=== PATIENT | female | born 1995 | race American Indian/Alaskan Native ===

== ENCOUNTER 2020-01-29 04:07 | Emergency (ER) | payer SELFPAY ==
[2020-01-29 04:51] VITALS: BP 114/64
== END 2020-01-29 04:51 | disposition left against medical advice (07) ==
LOC: ED 04:07
DX: R07.89 Other chest pain (principal); Z53.21 Procedure and treatment not carried out due to patient leaving prior to being seen by health care provider
CPT/HCPCS: 93005

== ENCOUNTER 2020-03-18 04:41 | Emergency (ER) | payer MEDICAID ==
[2020-03-18 04:49] VITALS: BP 126/75
[2020-03-18] MEDS ORDERED: ALUM-MAG HYDROXIDE-SIMETHICONE 200-200-20MG/5ML ORAL LIQD 30 ML PO ONE (06:46)
[2020-03-18] MEDS ORDERED: LIDOCAINE VISCOUS 2% 15 ML ORAL LIQD PO ONE (06:46)
[2020-03-18] MEDS ORDERED: IBUPROFEN 800 MG TAB PO ONE (06:47)
--- NOTE | 2020-03-18 07:18 | Emergency Department Report ---
ED General Adult HPI - General Chief complaint: Chest Pain Stated complaint: CHEST PRESSURE AND PAIN Time Seen by Provider: 03/18/20 06:46 Source: patient Mode of arrival: Ambulatory Limitations: No Limitations - History of Present Illness Initial comments: Patient is a 24-year-old female with history of GERD who presents for epigastric pain and burning exacerbated by p.o. intake and recumbent position. There is associated belching and bloating. Symptoms for the past week. Patient does endorse similar symptoms in past. Patient seen for the same 1 month ago. With normal cardiac work-up normal chest x-ray patient declines chest x-ray today. There has been no fever, chills, or cough. There has been no shortness of breath or wheezing. There has been no fever or chills. Patient is tolerating p.o. intake without vomiting. Severity scale (0 -10): 3 - Related Data Previous Rx's Medication Instructions Recorded Last Taken Type Ibuprofen [Motrin 800 MG tab] 800 mg PO Q8HR PRN #30 tablet 03/18/20 Unknown Rx Omeprazole 20 mg PO DAILY #30 tab.rap.dr 03/18/20 Unknown Rx Sucralfate [Carafate] 1 gm PO ACHS 7 Days #28 tablet 03/18/20 Unknown Rx Allergies Allergy/AdvReac Type Severity Reaction Status Date / Time No Known Allergies Allergy Unverified 01/29/20 04:56 ED Review of Systems ROS: Stated complaint: CHEST PRESSURE AND PAIN Other details as noted in HPI Constitutional: denies: chills, fever Eyes: denies: eye pain, eye discharge, vision change ENT: denies: ear pain, throat pain Respiratory: denies: cough, shortness of breath, wheezing Cardiovascular: denies: chest pain, palpitations Endocrine: no symptoms reported Gastrointestinal: nausea. denies: vomiting, diarrhea, constipation Genitourinary: denies: urgency, dysuria, discharge Musculoskeletal: denies: back pain, joint swelling, arthralgia Skin: denies: rash, lesions Neurological: denies: headache, weakness, paresthesias Psychiatric: denies: anxiety, depression Hematological/Lymphatic: denies: easy bleeding, easy bruising ED Past Medical Hx - Past Medical History Previous Medical History?: Yes Additional medical history: Hyperthyroidism - Surgical History Past Surgical History?: No - Social History Smoking Status: Never Smoker Substance Use Type: None - Medications Home Medications: Home Medications Medication Instructions Recorded Confirmed Last Taken Type Ibuprofen [Motrin 800 MG tab] 800 mg PO Q8HR PRN #30 tablet 03/18/20 Unknown Rx Omeprazole 20 mg PO DAILY #30 tab. 03/18/20 Unknown Rx Sucralfate [Carafate] 1 gm PO ACHS 7 Days #28 tablet 03/18/20 Unknown Rx ED Physical Exam - General Limitations: No Limitations General appearance: alert, in no apparent distress - Head Head exam: Present: atraumatic, normocephalic - Eye Eye exam: Present: normal appearance, EOMI Pupils: Present: normal accommodation - ENT ENT exam: Present: mucous membranes moist - Neck Neck exam: Present: normal inspection, full ROM. Absent: tenderness - Respiratory Respiratory exam: Present: normal lung sounds bilaterally. Absent: respiratory distress, wheezes, stridor, chest wall tenderness - Cardiovascular Cardiovascular Exam: Present: regular rate, normal rhythm. Absent: systolic murmur, diastolic murmur, rubs, gallop - GI/Abdominal GI/Abdominal exam: Present: soft, normal bowel sounds. Absent: distended, tenderness, guarding, rebound, rigid, bruit, hernia - Rectal Rectal exam: Present: deferred - Extremities Exam Extremities exam: Present: normal inspection, full ROM, normal capillary refill. Absent: tenderness - Back Exam Back exam: Present: normal inspection, full ROM. Absent: tenderness, CVA tenderness (R), CVA tenderness (L) - Neurological Exam Neurological exam: Present: alert, oriented X3, CN II-XII intact, normal gait - Psychiatric Psychiatric exam: Present: normal affect, normal mood - Skin Skin exam: Present: warm, dry, intact, normal color. Absent: rash ED Course Vital Signs 03/18/20 04:45 Temperature 98.2 F Pulse Rate 93 H Respiratory 16 Rate Blood Pressure 126/75 O2 Sat by Pulse 98 Oximetry ED Medical Decision Making - Medical Decision Making This is likely GERD Plan omeprazole Carafate ibuprofen follow-up with GI in 2 to 3 days patient verbalized agreement and understanding of discharge plan. Patient DC'd home in stable condition at this time. Critical care attestation.: If time is entered above; I have spent that time in minutes in the direct care of this critically ill patient, excluding procedure time. ED Disposition Clinical Impression: GERD (gastroesophageal reflux disease) Qualifiers: Esophagitis presence: without esophagitis Qualified Code(s): K21.9 - Gastro- esophageal reflux disease without esophagitis Disposition: TO HOME OR SELFCARE Is pt being admited?: No Does the pt Need Aspirin: No Condition: Stable Prescriptions: Sucralfate [Carafate] 1 gm PO ACHS 7 Days #28 tablet Ibuprofen [Motrin 800 MG tab] 800 mg PO Q8HR PRN #30 tablet PRN Reason: pain Omeprazole 20 mg PO DAILY #30 tab.rap. Referrals: [facility] [Provider Group] - 3-5 Days Forms: Work/School Release Form(ED) Time of Disposition: 07:18
== END 2020-03-18 07:41 | disposition home or self-care (01) ==
LOC: ED 04:41
DX: K21.9 Gastro-esophageal reflux disease without esophagitis (principal); Z79.1 Long term (current) use of non-steroidal anti-inflammatories (NSAID); Z79.899 Other long term (current) drug therapy
CPT/HCPCS: 93005; 99282

== ENCOUNTER 2020-03-18 11:39 | Emergency (ER) | payer MEDICAID ==
[2020-03-18] MEDS ORDERED: FAMOTIDINE 20 MG/2 ML INJ IV ONE (12:12)
[2020-03-18] MEDS ORDERED: ACETAMINOPHEN 325 MG TAB PO STA (12:12)
[2020-03-18] MEDS ORDERED: SODIUM CHLORIDE 0.9% 1000 ML 1,000 ML IV ONE (12:12)
[2020-03-18] MEDS ORDERED: diphenhydrAMINE 50 MG/ML VIAL IV ONE (12:12)
--- NOTE | 2020-03-18 12:14 | Emergency Department Report ---
ED General Adult HPI - General Chief complaint: Arrhythmia/Palpitations Stated complaint: HEART RACING/ANXIETY PUI?: No Time Seen by Provider: 03/18/20 11:53 Source: patient, RN notes reviewed, old records reviewed Mode of arrival: Ambulatory Limitations: No Limitations - History of Present Illness Initial comments: The patient was evaluated in the emergency department for symptoms described in the history of present illness. He/she was evaluated in the context of the global COVID-19 pandemic, which necessitated consideration that the patient might be at risk for infection with the virus that causes COVID-19. Institution al protocols and algorithms that pertain to the evaluation of patients at risk for COVID-19 are in a state of rapid change based on information released by regulatory bodies including the CDC and federal and state organizations. These policies and algorithms were followed during the patient's care in the emergency department. Please note that these policies, procedures and recommendations changed on a rapid basis. During the entire history and physical examination, I am chaperoned by nurse Malick Lang. This is a 24-year-old female. She is not known to myself previously. The patient tells me that she has a history of hypothyroidism. She states that recently in the past, she was ruled out for both Josy's and Graves' disease. She was being maintained and managed by an ENT physician at [facility]. She was previously on propranolol and methimazole, and she reports that her ENT physician discontinued the methimazole secondary to "decreasing blood counts." She is not compliant with her propanolol. The patient states that she is having trouble following up with outpatient end ocrinologist secondary to insurance issues. She presents to the ER today with a complaint of palpitations, heart racing, lightheadedness, and chest tightness. Her chest tightness is central and left-sided. It does not radiate to the back, arms or neck. It has been going on intermittently for weeks and months. She has not lost consciousness. She also reports feeling very anxious. She denies headache, neck pain, abdominal pain, , urinary symptoms, homicidality, suicidality. She does not smoke cigarettes or use recreational drugs. She denies travel, surgery, and oral contraceptive use. Her symptoms were improved in the ER with fluids, and reassurance. The symptoms have been going on and off intermittently for a few weeks/months, and today was an acute exacerbation. -: Gradual, week(s) Location: chest Radiation: non-radiation Consistency: intermittent Improves with: other Worsens with: other - Related Data Previous Rx's Medication Instructions Recorded Last Taken Type Methimazole [Tapazole] 10 mg PO QDAY #30 tablet 03/18/20 Unknown Rx Omeprazole 20 mg PO DAILY #30 tab. 03/18/20 Unknown Rx Sucralfate [Carafate] 1 gm PO ACHS 7 Days #28 tablet 03/18/20 Unknown Rx atenoloL [Tenormin] 25 mg PO DAILY #30 tab 03/18/20 Unknown Rx Allergies Allergy/AdvReac Type Severity Reaction Status Date / Time No Known Allergies Allergy Verified 03/18/20 11:40 ED Review of Systems ROS: Stated complaint: HEART RACING/ANXIETY Other details as noted in HPI Constitutional: denies: fever Eyes: denies: vision change ENT: denies: epistaxis Respiratory: see HPI. denies: cough, wheezing Cardiovascular: chest pain, palpitations Gastrointestinal: denies: nausea, vomiting, diarrhea Genitourinary: denies: dysuria Musculoskeletal: denies: back pain Skin: denies: lesions Neurological: weakness Psychiatric: anxiety ED Past Medical Hx - Past Medical History Additional medical history: Hyperthyroidism - Social History Smoking Status: Never Smoker Substance Use Type: None - Medications Home Medications: Home Medications Medication Instructions Recorded Confirmed Last Taken Type Methimazole [Tapazole] 10 mg PO QDAY #30 tablet 03/18/20 Unknown Rx Omeprazole 20 mg PO DAILY #30 tab. 03/18/20 Unknown Rx Sucralfate [Carafate] 1 gm PO ACHS 7 Days #28 tablet 03/18/20 Unknown Rx atenoloL [Tenormin] 25 mg PO DAILY #30 tab 03/18/20 Unknown Rx ED Physical Exam - General Limitations: No Limitations General appearance: alert, anxious, in distress - Head Head exam: Present: atraumatic, normocephalic - Eye Eye exam: Present: normal appearance, EOMI. Absent: nystagmus - ENT ENT exam: Present: normal exam, normal orophraynx, mucous membranes moist, normal external ear exam - Neck Neck exam: Present: normal inspection, full ROM. Absent: tenderness, meningismus - Respiratory Respiratory exam: Present: normal lung sounds bilaterally, chest wall tenderness. Absent: respiratory distress, wheezes, rales, rhonchi, stridor - Cardiovascular Cardiovascular Exam: Present: normal rhythm, tachycardia, normal heart sounds. Absent: irregular rhythm, systolic murmur, diastolic murmur, rubs, gallop - GI/Abdominal GI/Abdominal exam: Present: soft. Absent: distended, tenderness, guarding, rebound, rigid, pulsatile mass - Extremities Exam Extremities exam: Present: normal inspection, full ROM, other (2+ pulses noted in the bilateral upper and lower extremities. There is no palpable cord. negative Homans sign. Muscular compartments are soft. The pelvis is stable.). Absent: pedal edema, calf tenderness - Back Exam Back exam: Present: normal inspection, full ROM. Absent: tenderness, CVA tenderness (R), CVA tenderness (L), paraspinal tenderness, vertebral tenderness - Neurological Exam Neurological exam: Present: alert, oriented X3, other (No facial droop. Tongue midline. Extraocular movements intact bilaterally. Facial sensation intact to light touch in V1, V2, V3 distribution bilaterally. 5 and a 5 strength in 4 extremities. Sensation intact to light touch in 4 extremities.). Absent: motor sensory deficit - Psychiatric Psychiatric exam: Present: anxious - Skin Skin exam: Present: warm, dry, intact, normal color. Absent: rash ED Course Vital Signs 03/18/20 03/18/20 03/18/20 11:42 11:57 12:00 Temperature 98.6 F Pulse Rate 142 H 116 H 113 H Respiratory 20 27 H 14 Rate Blood Pressure 130/96 109/70 O2 Sat by Pulse 99 96 Oximetry 03/18/20 03/18/20 03/18/20 12:15 12:18 12:30 Temperature Pulse Rate 116 H 106 H Respiratory 17 17 13 Rate Blood Pressure 106/72 117/62 O2 Sat by Pulse 97 98 100 Oximetry 03/18/20 03/18/20 03/18/20 12:45 13:01 13:15 Temperature Pulse Rate 98 H 114 H Respiratory 19 24 Rate Blood Pressure 117/62 96/63 101/65 O2 Sat by Pulse 98 99 100 Oximetry 03/18/20 03/18/20 03/18/20 13:31 13:45 14:00 Temperature Pulse Rate 105 H 103 H 90 Respiratory 17 21 14 Rate Blood Pressure 108/58 112/68 110/63 O2 Sat by Pulse 81 L 100 100 Oximetry 03/18/20 03/18/20 03/18/20 14:15 14:30 14:45 Temperature Pulse Rate 106 H 89 91 H Respiratory 16 22 19 Rate Blood Pressure 122/73 103/61 105/57 O2 Sat by Pulse 100 98 100 Oximetry 03/18/20 03/18/20 15:00 15:15 Temperature Pulse Rate 106 H 95 H Respiratory 20 16 Rate Blood Pressure 97/65 112/60 O2 Sat by Pulse 98 99 Oximetry - Reevaluation(s) Reevaluation #1: 03/18/20 14:23 Differential diagnosis, including but not limited to: Hyperthyroidism, anxiety, costochondritis, GERD, gastritis, hiatal hernia, pneumonia, myoca rditis/pericarditis, coronary artery disease Assessment and plan: 24-year-old female with resolved tachycardia, who is not currently tachycardic, tachypneic or hypoxic, who does not have any DVT or p ulmonary embolism risk factors, who is low risk by Wells criteria, with a negative D-dimer, clinically sober, with a GCS of 15, with a history of hyperthyroidism, that appears to be inadequately managed secondary to medication noncompliance and not following up. TSH quite low, free T4 pending, CBC with differential pending, liver panel pending. Patient declined pain medicine at this time. Patient is quite young, and at low risk for major adverse cardiac event as per heart score. Her EKG today is morphologically unchanged from her prior EKG, with exception of tachycardia. Patient is amenable to resuming atenolol, as well as methimazole. Counseled to refrain from driving or operating motor vehicles until cleared to do so by her primary care doctor. I strongly counseled the patient to follow-up with an outpatient primary care doctor or policy advisor as soon as possible. This patient is observed in this ER department for hours without clinical decompensation, and has clinically improved. On multiple repeat assessments, she is playing with her cellular phone, with resolved tachycardia, does not appear to be in any acute distress. Her heart rate at this time is approximately 92 bpm. 03/18/20 17:21 Reevaluation #2: 03/18/20 15:30 Patient sleeping and resting comfortably in stretcher. Tachycardia resolved. Playing with her cellular phone. Does not appear to be in any acute distress at this time. ED Medical Decision Making - Lab Data Result diagrams: 03/18/20 Unknown 03/18/20 12:24 Vital Signs 03/18/20 11:42 Temperature 98.6 F Pulse Rate 142 H Respiratory 20 Rate Blood Pressure 130/96 O2 Sat by Pulse 99 Oximetry Lab Results 03/18/20 03/18/20 03/18/20 Range/Units 12:24 12:24 12:24 Hgb 10.6 (10.1-14.3) gm/dl Hct 32.9 (30.3-42.9) % Plt Count 443 H (140-440) K/mm3 D-Dimer 186.36 (0-234) ng/mlDDU Sodium 141 (137-145) mmol/L Potassium 3.8 (3.6-5.0) mmol/L Chloride 107.1 H (98-107) mmol/L Carbon Dioxide 22 (22-30) mmol/L Anion Gap 16 mmol/L BUN 7 (7-17) mg/dL Creatinine 0.4 L (0.6-1.2) mg/dL Estimated GFR > 60 ml/min BUN/Creatinine Ratio 18 % Glucose 95 (65-100) mg/dL Calcium 9.8 (8.4-10.2) mg/dL Magnesium 2.00 (1.7-2.3) mg/dL Total Creatine Kinase 49 (30-135) units/L TSH (0.270-4.200) mlU/mL HCG, Quant (0-4) mIU/mL Salicylates (2.8-20.0) mg/dL Acetaminophen (10.0-30.0) ug/mL Plasma/Serum Alcohol (0-0.07) % 03/18/20 03/18/20 03/18/20 Range/Units 12:24 12:24 12:24 Hgb (10.1-14.3) gm/dl Hct (30.3-42.9) % Plt Count (140-440) K/mm3 D-Dimer (0-234) ng/mlDDU Sodium (137-145) mmol/L Potassium (3.6-5.0) mmol/L Chloride (98-107) mmol/L Carbon Dioxide (22-30) mmol/L Anion Gap mmol/L BUN (7-17) mg/dL Creatinine (0.6-1.2) mg/dL Estimated GFR ml/min BUN/Creatinine Ratio % Glucose (65-100) mg/dL Calcium (8.4-10.2) mg/dL Magnesium (1.7-2.3) mg/dL Total Creatine Kinase (30-135) units/L TSH < 0.005 L (0.270-4.200) mlU/mL HCG, Quant < 2 (0-4) mIU/mL Salicylates < 0.3 L (2.8-20.0) mg/dL Acetaminophen (10.0-30.0) ug/mL Plasma/Serum Alcohol (0-0.07) % 03/18/20 03/18/20 Range/Units 12:24 12:24 Hgb (10.1-14.3) gm/dl Hct (30.3-42.9) % Plt Count (140-440) K/mm3 D-Dimer (0-234) ng/mlDDU Sodium (137-145) mmol/L Potassium (3.6-5.0) mmol/L Chloride (98-107) mmol/L Carbon Dioxide (22-30) mmol/L Anion Gap mmol/L BUN (7-17) mg/dL Creatinine (0.6-1.2) mg/dL Estimated GFR ml/min BUN/Creatinine Ratio % Glucose (65-100) mg/dL Calcium (8.4-10.2) mg/dL Magnesium (1.7-2.3) mg/dL Total Creatine Kinase (30-135) units/L TSH (0.270-4.200) mlU/mL HCG, Quant (0-4) mIU/mL Salicylates (2.8-20.0) mg/dL Acetaminophen 5.0 L (10.0-30.0) ug/mL Plasma/Serum Alcohol < 0.01 (0-0.07) % - EKG Data -: EKG Interpreted by [facility] EKG shows normal: sinus rhythm Rate: tachycardia - EKG Data When compared to previous EKG there are: no significant change 03/18/20 14:26 Sinus rhythm, tachycardia, 117 bpm, normal axis, QTC is 444 ms, there is minimal motion artifact. This EKG is abnormal. This EKG is not a STEMI, the EKG today appears to be unchanged from prior EKG from 01/29/2000 - Radiology Data Radiology results: pending, report reviewed, image reviewed Print Report Referring Physician: ANNALISA RENAE Patient Name: BECKIE PRICE Date of : 1995 Sex: Female Report Date: 2020-03-18 Report Status: Finalized Findings [facility] [address] [place] [address] XRay Report Signed Patient: BECKIE PRICE MR#: [id number] : 1995 Acct:[id number] Age/Sex: 24 / F ADM Date: 03/18/20 Loc: ED Attending Dr: Ordering Physician: ANNALISA RENAE MD Date of Service: 03/18/20 Procedure(s): XR chest 1V ap Accession Number(s): [id number] cc: ANNALISA RENAE MD Fluoro Time In Minutes: CHEST 1 VIEW INDICATION: Chest pain. COMPARISON: None FINDINGS: Support devices: None. Heart: Within normal limits. Lungs/Pleura: No acute air space or interstitial disease. Additional findings: None. IMPRESSION: No acute findings. Signer Name: Azam Ordonez Jr, MD Signed: 03/18/2020 1:48 PM Workstation Name: [id number] Transcribed By: TTR Dictated By: AZAM ORDONEZ JR, MD Electronically Authenticated By: AZAM ORDONEZ JR, MD Signed Date/Time: 03/18/20 134 DD/ TD/TT: Critical care attestation.: If time is entered above; I have spent that time in minutes in the direct care of this critically ill patient, excluding procedure time. ED Disposition Clinical Impression: Hyperthyroidism, Chest wall pain, Non-compliance Disposition: DC-01 TO HOME OR SELFCARE Is pt being admited?: No Does the pt Need Aspirin: No Condition: Stable Instructions: Hyperthyroidism, Chest Wall Pain, Chest Pain (ED) Additional Instructions: We recommend that the patient not drive or operate motor vehicles for the next 6 months, or until cleared to do so by her primary care doctor and/or policy advisor. Recommend follow-up with an outpatient primary care doctor/policy advisor as soon as possible. Recommend that patient reinitiate methimazole therapy, and atenolol therapy. Recommend that patient not breast-feed while taking these medications. Recommend that patient drink 4 to 6 cups of water per day indefinitely, and make certain to eat 4-6 meals per day indefinitely. Please return to the emergency room right away with new pain, worsened pain, migration of pain, projectile vomiting, change in mental status, confusion, inab ility to tolerate liquid feeds. Patient may take [id number] acetaminophen and/or ibuprofen as needed for pain. If taking ibuprofen for pain, make certain to take it with food. Recommend follow-up with an outpatient primary care doctor or policy advisor Prescriptions: Methimazole [Tapazole] 10 mg PO QDAY #30 tablet atenoloL [Tenormin] 25 mg PO DAILY #30 tab Referrals: KINDRA MOREAU MD [Staff Physician] - 3-5 Days [facility] [Provider Group] - 3-5 Days
[2020-03-18 12:48] LABS: Hematocrit 32.9 % (30.3-42.9); Hemoglobin 10.6 gm/dl (10.1-14.3)
[2020-03-18 13:19] LABS: Blood Urea Nitrogen 7 mg/dL (7-17); Calcium 9.8 mg/dL (8.4-10.2); Hemolysis Index 15
[2020-03-18 13:23] LABS: BUN/Creatinine Ratio 18
--- NOTE | 2020-03-18 13:53 | XRay Report ---
CHEST 1 VIEW INDICATION: Chest pain. COMPARISON: None FINDINGS: Support devices: None. Heart: Within normal limits. Lungs/Pleura: No acute air space or interstitial disease. Additional findings: None. IMPRESSION: No acute findings. Signer Name: Azam Ordonez Jr, MD Signed: 03/18/2020 1:48 PM Workstation Name: [id number]
[2020-03-18 14:26] LABS: Alanine Aminotransferase 17 units/L (7-56); Albumin 4.2 g/dL (3.9-5)
[2020-03-18] MEDS ORDERED: atenoloL 25 MG TAB PO ONE (14:28)
[2020-03-18 14:32] LABS: Bilirubin,Direct < 0.2 mg/dL (0-0.2)
[2020-03-18 14:46] LABS: Basophils % (Auto) 0.7 % (0.0-1.8); Eosinophils # (Auto) 0.1 K/mm3 (0.0-0.4); Eosinophils % (Auto) 2.2 % (0.0-4.3); Hematocrit 33.4 % (30.3-42.9); Hemoglobin 10.5 gm/dl (10.1-14.3); Lymphocytes # (Auto) 0.9 K/mm3 (1.2-5.4); Lymphocytes % (Auto) 28.3 % (13.4-35.0); Mean Corpuscular HGB Conc 32 % (30-34); Mean Corpuscular Volume 76 fl (79-97); Monocytes # (Auto) 0.4 K/mm3 (0.0-0.8); Monocytes % (Auto) 12.5 % (0.0-7.3); Platelet Count 464 K/mm3 (140-440); Red Cell Distribution Width 15.8 % (13.2-15.2)
[2020-03-18 15:16] VITALS: BP 112/60
== END 2020-03-18 15:42 | disposition home or self-care (01) ==
LOC: ED 11:39
DX: E05.90 Thyrotoxicosis, unspecified without thyrotoxic crisis or storm (principal); R07.89 Other chest pain; R42 Dizziness and giddiness; Z91.19 Patient's noncompliance with other medical treatment and regimen; Z79.899 Other long term (current) drug therapy
CPT/HCPCS: 36415; 71045; 80048; 80076; 82550; 83735; 84439; 84443; 84484; 84702; 85014; 85018; 85025; 85049; 85379; 93005; 96360; 99284; J7030; 80320; 99282; G0480

== ENCOUNTER 2020-04-02 03:06 | Emergency (ER) | payer MEDICAID ==
--- NOTE | 2020-04-02 05:11 | XRay Report ---
CHEST 2 VIEWS INDICATION: chest pain. COMPARISON: None FINDINGS: SUPPORT DEVICES: None. HEART: Within normal limits. LUNGS/PLEURA: No acute air space or interstitial disease. No pneumothorax. ADDITIONAL FINDINGS: None. IMPRESSION: 1. No acute findings. Signer Name: Tomás Starr MD Signed: 04/02/2020 5:07 AM Workstation Name: [id number]
[2020-04-02] MEDS ORDERED: ALUM-MAG HYDROXIDE-SIMETHICONE 200-200-20MG/5ML ORAL LIQD 30 ML PO ONE (09:25)
[2020-04-02 09:33] VITALS: BP 124/64
[2020-04-02 10:31] LABS: Hematocrit 31.1 % (30.3-42.9); Hemoglobin 9.9 gm/dl (10.1-14.3); Mean Corpuscular HGB Conc 32 % (30-34); Mean Corpuscular Volume 74 fl (79-97); Platelet Count 417 K/mm3 (140-440); Red Blood Count 4.23 M/mm3 (3.65-5.03); Red Cell Distribution Width 15.5 % (13.2-15.2)
[2020-04-02 10:33] LABS: Alanine Aminotransferase 17 units/L (7-56); Blood Urea Nitrogen 7 mg/dL (7-17); Calcium 9.5 mg/dL (8.4-10.2); Hemolysis Index 0
[2020-04-02 10:35] LABS: BUN/Creatinine Ratio 18
--- NOTE | 2020-04-02 11:03 | Emergency Department Report ---
ED General Adult HPI - General Chief complaint: Chest Pain Stated complaint: CHEST PAIN Time Seen by Provider: 04/02/20 09:07 Source: patient Mode of arrival: Ambulatory Limitations: No Limitations - History of Present Illness Initial comments: This is a 24-year-old female complaining of burning across her chest and in her throat off and on for 3 months she stated that tonight it just felt different patient has a history of hyperthyroidism after delivering her baby on October 28, 2019 . she was initially started on Methimazole 10 mg daily patient states however her primary care doctor stopped her from taking the Methimazole. She currently take Atenolol prn if heart rate 120 or greater. She is scheduled for a thyroid scan on April 29 and is being followed by product assurance engineer in [facility]. patient denies URI symptoms she denies fever she denies shortness of breath cough. She does report being under a lot of stress and feel ing anxious her describes as a burning sensation that runs across her chest . Patient in no acute distress she is well-appearing none toxic appearance Severity scale (0 -10): 1 - Related Data Previous Rx's Medication Instructions Recorded Last Taken Type Methimazole [Tapazole] 10 mg PO QDAY #30 tablet 03/18/20 Unknown Rx Omeprazole 20 mg PO DAILY #30 tab. 03/18/20 Unknown Rx Sucralfate [Carafate] 1 gm PO ACHS 7 Days #28 tablet 03/18/20 Unknown Rx atenoloL [Tenormin] 25 mg PO DAILY #30 tab 03/18/20 Unknown Rx Allergies Allergy/AdvReac Type Severity Reaction Status Date / Time No Known Allergies Allergy Verified 03/18/20 11:40 ED Review of Systems ROS: Stated complaint: CHEST PAIN Other details as noted in HPI Comment: All other systems reviewed and negative Constitutional: denies: see HPI, fever, malaise Eyes: denies: eye pain, eye discharge, vision change ENT: denies: ear pain, throat pain, dental pain, hearing loss, epistaxis Respiratory: denies: cough, orthopnea, SOB with exertion, SOB at rest Cardiovascular: other. denies: palpitations (Burning sensation across her chest), dyspnea on exertion, edema, syncope Endocrine: denies: excessive sweating, flushing, intolerance to cold, intolerance to heat, increased hunger, increased thirst, increased urine, unexplained weight gain, unexplained weight loss Gastrointestinal: denies: abdominal pain, nausea, vomiting Genitourinary: denies: urgency, dysuria, frequency Neurological: denies: headache, weakness, paresthesias, abnormal gait Psychiatric: anxiety. denies: auditory hallucinations, visual hallucinations, homicidal thoughts, suicidal thoughts Hematological/Lymphatic: as per HPI ED Past Medical Hx - Past Medical History Previous Medical History?: Yes Additional medical history: Hyperthyroidism - Surgical History Past Surgical History?: No - Social History Smoking Status: Never Smoker Substance Use Type: None - Medications Home Medications: Home Medications Medication Instructions Recorded Confirmed Last Taken Type Methimazole [Tapazole] 10 mg PO QDAY #30 tablet 03/18/20 Unknown Rx Omeprazole 20 mg PO DAILY #30 tab. 03/18/20 Unknown Rx Sucralfate [Carafate] 1 gm PO ACHS 7 Days #28 tablet 03/18/20 Unknown Rx atenoloL [Tenormin] 25 mg PO DAILY #30 tab 03/18/20 Unknown Rx ED Physical Exam - General Limitations: No Limitations General appearance: alert, in no apparent distress - Head Head exam: Present: atraumatic - Eye Eye exam: Present: normal appearance. Absent: scleral icterus, conjunctival injection - ENT ENT exam: Present: normal exam, mucous membranes moist, TM's normal bilaterally - Neck Neck exam: Present: normal inspection. Absent: lymphadenopathy - Respiratory Respiratory exam: Present: normal lung sounds bilaterally. Absent: respiratory distress, wheezes, rales, rhonchi, chest wall tenderness - Cardiovascular Cardiovascular Exam: Present: regular rate, normal heart sounds - GI/Abdominal GI/Abdominal exam: Present: soft. Absent: distended, tenderness, guarding - Extremities Exam Extremities exam: Present: normal inspection - Back Exam Back exam: Present: normal inspection. Absent: CVA tenderness (R), CVA tende rness (L) - Neurological Exam Neurological exam: Present: alert, oriented X3 - Psychiatric Psychiatric exam: Present: normal affect, normal mood. Absent: depressed, suicidal ideation - Skin Skin exam: Present: warm, dry, intact, normal color ED Course Vital Signs 04/02/20 04/02/20 04/02/20 03:55 09:30 09:32 Temperature 98.6 F 98.5 F Pulse Rate 95 H 92 H Respiratory 20 15 Rate Blood Pressure 121/58 Blood Pressure 124/64 [Left] O2 Sat by Pulse 97 100 100 Oximetry - Reevaluation(s) Reevaluation #1: 04/02/20 13:06 Patient resting comfortably in no distress I explained all my findings to patient she verbalizes understanding she is comfortable with going home and to continue her work-up with her product assurance engineer ED Medical Decision Making - Lab Data Result diagrams: 04/02/20 09:27 04/02/20 09:27 - EKG Data EKG shows normal: sinus rhythm Rate: normal (72) - EKG Data When compared to previous EKG there are: previous EKG unavailable - Medical Decision Making This is a 24-year-old female. She is 5 months she developed hyperthyroidism childbirth she is currently being worked up by her product assurance engineer and PCP. She has atenolol at home that she takes as needed tachycardia. Today she presented to the ER complaint of burning across her ch est which was relieved with Maalox. EKG was normal sinus rhythm. Vital signs are normal heart rate 95. Subclinical hyperthyroidism. Patient is to continue outpatient work-up with product assurance engineer. Patient reviewed with my attending Dr. Summers and he agrees with plan of care - Differential Diagnosis Hyperthyroidism anxiety Critical Care Time: No Critical care attestation.: If time is entered above; I have spent that time in minutes in the direct care of this critically ill patient, excluding procedure time. ED Disposition Clinical Impression: Subclinical hyperthyroidism Disposition: - TO HOME OR SELFCARE Is pt being admited?: No Does the pt Need Aspirin: No Condition: Stable Instructions: Hyperthyroidism Additional Instructions: Continue taking atenolol as prescribed. Follow-up with your product assurance engineer and primary care doctor follow-up with the thyroid scan that scheduled on April 29. Continue taking your vitamins get plenty of rest increase your oral intake eat 3 nutritious meals per day. You may also consider taking Maalox for heartburn or Prilosec daily as prescribed Referrals: PRIMARY CARE, [Primary Care Provider] - 3-5 Days Time of Disposition: 12:40
== END 2020-04-02 13:48 | disposition home or self-care (01) ==
LOC: ED 03:06
DX: E07.89 Other specified disorders of thyroid (principal); Z79.899 Other long term (current) drug therapy
CPT/HCPCS: 36415; 71046; 80053; 84439; 84443; 84481; 84703; 85027; 93005